=== PATIENT | female | born 1970 | race Caucasian/White ===

== ENCOUNTER → 2023-05-13 16:49 | Outpatient (REF) | payer BC, SELFPAY | LOC: RAD 16:49 | PROVIDERS: ATTENDING PHYSICIAN Nurse Practitioner Adult Health | DX: R07.89 Other chest pain (principal); Z86.16 Personal history of COVID-19 | CPT/HCPCS: 71046 ==

== ENCOUNTER → 2024-01-18 12:56 | Outpatient (REF) | payer BC, SELFPAY ==
[2024-01-18 16:38] LABS: Urine Albumin Negative (Neg - Trace); Urine Bilirubin Negative (Negative); Urine Character Clear (Clear); Urine Color Yellow; Urine Glucose Negative (Negative); Urine Ketone Negative (Negative); Urine Leukocyte Negative (Negative); Urine Nitrite Negative (Negative); Urine Occult Blood Negative (Negative); Urine Urobilinogen Negative (Neg - 1+)
[2024-01-18 16:41] LABS: % Basophils 0.6 % (0-2); % Eosinophils 1.1 % (0-6); % Immature Granulocytes 0.4 % (0-0.5); % Lymphocytes 34.8 % (20.5-51.1); % Monocytes 6.7 % (1.7-9.3); % Neutrophils 56.4 % (42.2-75.2); Absolute Eosinophils 0.1 10^3/uL (0-0.7); Absolute Lymphocytes 1.9 10^3/uL (1.2-3.4); Absolute Monocytes 0.4 10^3/uL (0.1-0.6); Absolute Neutrophils 3.1 10^3/uL (1.4-6.5); Hematocrit 39.7 % (37.0-47.0); Hemoglobin 13.3 g/dL (12.0-16.0); Mean Corp Hgb Conc. 33.5 g/dL (33.0-37.0); Mean Corpuscular Hgb 27.8 pg (27.0-31.0); Mean Corpuscular Volume 83.1 fL (81.0-99.0); Mean Platelet Volume 9.1 fL (7.4-10.4); Nucleated Red Blood Cells % 0 %; Platelet Count 321 10^3/uL (130-400); Red Blood Cell Count 4.78 10^6/uL (4.20-5.40); Red Cell Dist. Width 13.2 % (11.5-14.5); White Blood Cell Count 5.4 10^3/uL (4.8-10.8)
[2024-01-18 16:42] LABS: C-Reactive Protein < 5.00 mg/L (0.0-10.00)
[2024-01-18 16:47] LABS: Erythrocyte Sed Rate 10 mm/hour (0-20)
[2024-01-18 16:47] LABS: ALT (SGPT) 21 U/L (0-35); AST (SGOT) 24 U/L (14-36); Alkaline Phosphatase 52 U/L (38-126); Blood Urea Nitrogen 18 mg/dl (7-17); Calcium 9.6 mg/dl (8.4-10.2); Carbon Dioxide 28 mmol/L (22-30); Chloride 100 mmol/L (98-107); Creatine Phosphokinase 75 U/L (30-135); Glucose 92 mg/dl (70-99); Sodium 138 mmol/L (135-145); Total Bilirubin 0.4 mg/dl (0.2-1.3); Total Protein 6.9 g/dl (6.3-8.2); eGFR > 60.00
[2024-01-18 16:53] LABS: Albumin 4.5 g/dl (3.5-5.0)
[2024-01-18 17:12] LABS: Urine Protein < 5 mg/dl
[2024-01-18 18:01] LABS: Rheumatoid Agglutinin Less Than 10 IU (<10 IU)
[2024-01-18 18:50] LABS: Hepatitis B Surface Antigen Negative (Negative)
[2024-01-18 19:08] LABS: Hepatitis B Core Ab, Total Negative (Negative); Hepatitis B Surface Antibody Negative
== END ==
LOC: WDC 12:56
PROVIDERS: ATTENDING PHYSICIAN Obstetrics & Gynecology; FAMILY PHYSICIAN Nurse Practitioner Adult Health; OTHER PHYSICIAN Anesthesiology; OTHER PHYSICIAN Internal Medicine Rheumatology
DX: Z78.0 Asymptomatic menopausal state (principal); Z12.31 Encounter for screening mammogram for malignant neoplasm of breast; M25.59 Pain in other specified joint
CPT/HCPCS: 36415; 73522; 77063; 77067; 77080; 80053; 81003; 82085; 82232; 82550; 82570; 82784; 82785; 83521; 84155; 84156; 84165; 84443; 85025; 85610; 85613; 85652; 85730; 86038; 86140; 86146; 86147; 86200; 86235; 86334; 86335; 86430; 86704; 86706; 87340; 87522

== ENCOUNTER → 2024-01-29 10:28 | Outpatient (REF) | payer BC, SELFPAY | LOC: RAD 10:28 | PROVIDERS: ATTENDING PHYSICIAN Internal Medicine Rheumatology; FAMILY PHYSICIAN Nurse Practitioner Adult Health | DX: R68.2 Dry mouth, unspecified (principal) | CPT/HCPCS: 78231; A9512 ==

== ENCOUNTER → 2024-04-20 17:08 | Outpatient (REF) | payer BC, SELFPAY | LOC: CLAB 17:08 | PROVIDERS: ATTENDING PHYSICIAN Otolaryngology | DX: M35.00 Sjogren syndrome, unspecified (principal) | CPT/HCPCS: 88305 ==

== ENCOUNTER → 2024-04-26 07:55 | Outpatient (REF) | payer BC, SELFPAY | LOC: HWRAD 07:55 | PROVIDERS: ATTENDING PHYSICIAN Urology; FAMILY PHYSICIAN Nurse Practitioner Adult Health; REFERRING PHYSICIAN Internal Medicine Rheumatology | DX: R39.9 Unspecified symptoms and signs involving the genitourinary system (principal); N39.41 Urge incontinence; N39.0 Urinary tract infection, site not specified; N39.3 Stress incontinence (female) (male); M62.89 Other specified disorders of muscle; N95.8 Other specified menopausal and perimenopausal disorders; R35.0 Frequency of micturition; N94.10 Unspecified dyspareunia | CPT/HCPCS: 76770; 76856 ==

== ENCOUNTER → 2025-02-17 10:05 | Outpatient (REF) | payer BC, SELFPAY | LOC: WDC 10:05 | PROVIDERS: ATTENDING PHYSICIAN Student in an Organized Health Care Education/Training Program; FAMILY PHYSICIAN Nurse Practitioner Adult Health | DX: N64.4 Mastodynia (principal) | CPT/HCPCS: 76642; 77062; 77066 ==